=== PATIENT | female | born 1995 | race African-American/Black ===

== ENCOUNTER 2018-07-14 12:10 | Emergency (ER) | payer BC, OTHER ==
--- NOTE | 2018-07-14 12:17 | ED Physician Documentation ---
General Adult - HISTORIAN Historian: patient - HPI Stated Complaint: right 3rd digit pain after fall Chief Complaint: Hand Injury Further Comments: yes (She states she was playing basketball and she fell catching her 3rd digit and it has had pain since. She states the Ibuprofen and ice did help but swelling has increased. She has decreased ROM pain to touch and pulses +) - ROS CONST: no problems - PAST HX Past History: none Immunizations: UTD - SOCIAL HX Smoking History: non-smoker Alcohol Use: none Drug Use: none - FAMILY HX Family History: No - REVIEWED ASSESSMENTS Nursing Assessment Reviewed: Yes Vitals Reviewed: Yes ED Results Lab/Radiology - Radiology Radiology Impressions: Examination: Plain film right hand History: RT HAND, PAIN/SWELLING/BRUSING IN RT HAND AFTER HITTING IT ON THE FLOOR YESTERDAY (Hx) Comparison exams: None available Findings: 3 views of the right hand demonstrate normal cortical margins. No fracture. No dislocation. Mild 3rd digit soft tissue swelling. Impression: No acute osseous abnormality Electronically signed on Jul 14, 2018 12:57:22 PM CLEANER ASSISTANT by: Caden Elkins [facility] Physical Exam - PHYSICAL EXAM GENERAL APPEARANCE: no distress EENT: eye inspection normal NECK: normal inspection RESPIRATORY: no resp distress, chest non-tender, breath sounds normal CVS: reg rate & rhythm, heart sounds normal ABDOMEN: soft, no distension SKIN: warm/dry, other (right hand middle digit with swelling. Pulses + cap refill + decreased rom at second joint ) EXTREMITIES: non-tender, normal range of motion, no evidence of injury NEURO: oriented X3 Discharge Clincal Impression: Sprain of right middle finger Qualifiers: Encounter type: initial encounter Sprain of finger site: unspecified site Qualified Code(s): S63.612A - Unspecified sprain of right middle finger, initial encounter Referrals: Primary Doctor,No [Primary Care Provider] - 2 Days Comments: 1. Keep ice on area 2. Keep area splinted 3. Ibuprofen or Tylenol as directed as needed for pain 4. Follow up with PCP in 2-4 days if no improvement 5. Return to ER for any concerns Condition: Stable Decision to Admit: NO Date of Decison to Admit: 07/14/18 Decision Time: 13:01
[2018-07-14 12:38] VITALS: BP 135/74
--- NOTE | 2018-07-14 17:25 | Diagnostic Imaging Report ---
NU CHAVEZ [facility] [address] [facility] [address] [address] Report Submission Date: Jul 14, 2018 12:57:22 PM [employer] Patient Study Name: RIYA ALMAZAN Date: Jul 14, 2018 12:25:26 PM [employer] Modality Type: DX Gender: F Description: UPPER EXTREMITY : 89 Institution: [facility] Physician: NU CHAVEZ Examination: Plain film right hand History: RT HAND, PAIN/SWELLING/BRUSING IN RT HAND AFTER HITTING IT ON THE FLOOR YESTERDAY (Hx) Comparison exams: None available Findings: 3 views of the right hand demonstrate normal cortical margins. No fracture. No dislocation. Mild 3rd digit soft tissue swelling. Impression: No acute osseous abnormality Electronically signed on Jul 14, 2018 12:57:22 PM [employer] by: Caden MCCLURE
== END 2018-07-14 13:07 ==
LOC: ED 12:10
DX: S63.612A Unspecified sprain of right middle finger, initial encounter (principal); W01.0XXA Fall on same level from slipping, tripping and stumbling without subsequent striking against object, initial encounter; Y93.67 Activity, basketball; Y92.9 Unspecified place or not applicable
CPT/HCPCS: 73130; 99282; 99283